=== PATIENT | female | born 1990 | race Caucasian/White ===

== ENCOUNTER → 2020-08-04 | Outpatient (CLI) | payer OTHER ==
[~2020-08-04] MED LIST: ALBUTEROL1.25 MG/3 INH; DYMISTA NASAL S23 GM; FLONASE 0.05% N16 GM; FLONASE ALLER15.8 ML; IBUPROFEN600 MG PO; PRENATAL VITAM1 EAC3 PO; PRENATAL VITAM1 EAC8 PO; PRILOSEC OTC20 MG PO; VITAMIN D-40400 UNIT PO; ZANTAC150 MG PO
[2020-08-04 13:04] LABS: HEMOGLOBIN 14.8 gm/dl (12.3-15.3); RED BLOOD COUNT 5.1 M/UL (4.00-5.10); WHITE BLOOD COUNT 6.4 K/UL (4.5-11.0)
[2020-08-04 13:29] LABS: BUN/CREATININE RATIO 20 (0-10)
== END ==
LOC: LAB 12:30
PROVIDERS: Nurse Practitioner Family
DX: R06.02 Shortness of breath (principal); R53.83 Other fatigue; M10.9 Gout, unspecified; Z13.220 Encounter for screening for lipoid disorders
CPT/HCPCS: 36415; 71046; 80053; 80061; 81001; 82607; 82746; 84439; 84443; 84550; 85025

== ENCOUNTER → 2020-09-26 | Outpatient (CLI) | payer OTHER ==
[2020-09-27 08:15] LABS: ANTISTREPTOLYSIN O AB 427.6 IU/mL (0.0-200.0); COMPLEMENT C3, SERUM 140 mg/dL (82-167); COMPLEMENT C4, SERUM 22 mg/dL (12-38); RHEUMATOID ARTHRITIS FACTOR <10.0 IU/mL (0.0-13.9)
[2020-09-27 12:10] LABS: ANTI-DSDNA ANTIBODIES 2 IU/mL (0-9); ANTICHROMATIN ANTIBODIES <0.2 AI (0.0-0.9)
== END ==
LOC: MAMO 08-29 11:30
PROVIDERS: Nurse Practitioner Family
DX: M25.50 Pain in unspecified joint (principal)
CPT/HCPCS: 36415; 85652; 86038; 86060; 86140; 86160; 86225; 86431

== ENCOUNTER 2021-09-14 20:15 | Emergency (ER) | payer OTHER ==
[2021-09-14 21:12] LABS: HEMOGLOBIN 13.8 gm/dl (12.3-15.3); RED BLOOD COUNT 4.88 M/UL (4.00-5.10); WHITE BLOOD COUNT 11.9 K/UL (4.5-11.0)
[2021-09-14 21:31] LABS: BUN/CREATININE RATIO 11 (0-10)
[2021-09-14] MEDS ORDERED: MACROBID 100 M100 M1 PO (22:37)
== END 2021-09-14 23:40 | disposition home or self-care (01) ==
LOC: ER1 20:15
PROVIDERS: Physician Assistant
DX: O23.91 Unspecified genitourinary tract infection in pregnancy, first trimester (principal); Z3A.11 11 weeks gestation of pregnancy
CPT/HCPCS: 80053; 81001; 83690; 85025; 86140; 87086; 99284

== ENCOUNTER → 2022-01-09 | Outpatient (CLI) | payer OTHER ==
[~2022-01-09] MED LIST changes: +MACROBID 100 M100 M1 PO
== END ==
LOC: KOH-I 15:53
DX: O23.40 Unspecified infection of urinary tract in pregnancy, unspecified trimester (principal)
CPT/HCPCS: 76775

== ENCOUNTER 2022-04-03 15:06 | Outpatient (CLI) | payer OTHER ==
[2022-04-03 15:57] LABS: HEMOGLOBIN 12.8 gm/dl (12.3-15.3); RED BLOOD COUNT 4.46 M/UL (4.00-5.10); WHITE BLOOD COUNT 9.6 K/UL (4.5-11.0)
[2022-04-04] MEDS ORDERED: PREVACID30 MG PO ×2 (08:15→08:16)
[2022-04-04] MEDS ORDERED: HYDROCODON-ACE1 EAC6 PO (09:38)
[2022-04-04] MEDS ORDERED: IBUPROFEN600 MG PO (09:38)
[2022-04-04] MEDS ORDERED: COLACE 100MG C100 MG PO (09:38)
== END 2022-04-03 16:30 | disposition home or self-care (01) ==
LOC: GENOP 15:06
PROVIDERS: Obstetrics & Gynecology
DX: Z01.812 Encounter for preprocedural laboratory examination (principal)
CPT/HCPCS: 36415; 81001; 85025